=== PATIENT | female | born 1995 | race African-American/Black ===

== ENCOUNTER 2020-02-21 10:13 | Inpatient (IN) | payer OTHER ==
[~2020-02-21] VITALS: Ht 157.5 cm; Wt 79.8 kg
[2020-02-21 10:55] LABS: HCT 32.7 % (37.0-47.0); HGB 10.8 g/dl (12.5-16.0); MCH 29.1 pg (25.0-31.0); MCV 88.1 fL (78.0-100.0); MPV 9.7 fL (6.0-9.5); RBC 3.71 M/uL (4.20-5.40); RDW 12.8 % (11.5-14.0); WBC 10.9 K/uL (4.0-10.5)
[2020-02-21 11:09] LABS: ALBUMIN 2.5 g/dL (3.4-5.0); BILIRUBIN - TOTAL 0.3 mg/dL (0.2-1.0); BUN/CREAT RATIO (CALC) 5.3 RATIO; CREATININE 0.38 mg/dL (0.51-0.95); GLOBULIN (CALCULATION) 3.6 g/dL; POTASSIUM 3.3 mmol/L (3.5-5.1); TOTAL PROTEIN 6.1 g/dL (6.4-8.2)
[2020-02-21 14:11] LABS: BILIRUBIN NEGATIVE (NEGATIVE); BLOOD NEGATIVE Ery/uL (NEGATIVE); CLARITY CLEAR (CLEAR); COLOR YELLOW (YELLOW); GLUCOSE (U) NORMAL (NORMAL); LEUKOCYTES NEGATIVE Leu/uL (NEGATIVE); NITRITE NEGATIVE (NEGATIVE); PROTEIN NEGATIVE (NEGATIVE); UROBILINOGEN 0.2 mg/dL (0.2-1.0)
[2020-02-21 14:19] LABS: URIC ACID 3.7 mg/dL (2.6-6.2)
[2020-02-22 05:58] LABS: HCT 28.9 % (37.0-47.0); HGB 9.4 g/dl (12.5-16.0); MCH 29.2 pg (25.0-31.0); MCHC 32.5 g/dL (32.0-36.0); MCV 89.8 fL (78.0-100.0); MPV 9.7 fL (6.0-9.5); RBC 3.22 M/uL (4.20-5.40); RDW 12.9 % (11.5-14.0); WBC 12.1 K/uL (4.0-10.5)
[2020-02-23] MEDS ORDERED: OXYCODONE-ACET1 EAC1 PO (11:16)
[2020-02-23] MEDS ORDERED: COLACE100 MG PO (11:17)
[2020-02-23] MEDS ORDERED: PRENATAL FORMU1 EACH PO (11:18)
[2020-02-23] MEDS ORDERED: FEOSOL325 MG PO (11:19)
[2020-02-23] MEDS ORDERED: MOTRIN600 MG PO (11:20)
== END 2020-02-23 13:17 | disposition home or self-care (01) | DRG 786 ==
LOC: FOD 10:13 → FOB 10:14 → FOD 10:42 → FOB 10:43
PROVIDERS: ADMIT Obstetrics & Gynecology
PROC: 4A1HXCZ Monitoring of Products of Conception, Cardiac Rate, External Approach (ICD-10-PCS; 2020-02-21)
PROC: 10D00Z1 Extraction of Products of Conception, Low, Open Approach (ICD-10-PCS; principal; 2020-02-21 12:20)
DX: O75.0 Maternal distress during labor and delivery (principal); O45.93 Premature separation of placenta, unspecified, third trimester; D62 Acute posthemorrhagic anemia; O24.419 Gestational diabetes mellitus in pregnancy, unspecified control; Z3A.32 32 weeks gestation of pregnancy; Z37.0 Single live birth; O99.213 Obesity complicating pregnancy, third trimester; E66.9 Obesity, unspecified; O99.343 Other mental disorders complicating pregnancy, third trimester; F41.8 Other specified anxiety disorders; Z88.5 Allergy status to narcotic agent; O99.353 Diseases of the nervous system complicating pregnancy, third trimester; G43.909 Migraine, unspecified, not intractable, without status migrainosus; O99.891 Other specified diseases and conditions complicating pregnancy; M19.90 Unspecified osteoarthritis, unspecified site; Z98.890 Other specified postprocedural states; O90.81 Anemia of the puerperium; Z20.822 Contact with and (suspected) exposure to COVID-19
CPT/HCPCS: 36415; 80053; 81003; 83615; 84550; 86850; 86900; 86901; J0456; J0690; J1885; J2250; J2274; J2916; J3010; J3105; J7050; J7120; U0002

== ENCOUNTER 2020-10-17 10:26 | Emergency (ER) | payer OTHER ==
[~2020-10-17 10:26] MED LIST: COLACE100 MG PO; FEOSOL325 MG PO; MOTRIN600 MG PO; OXYCODONE-ACET1 EAC1 PO; PRENATAL FORMU1 EACH PO
== END 2020-10-17 11:58 | disposition home or self-care (01) ==
LOC: FER 10:26
DX: U07.1 COVID-19 (principal); F17.210 Nicotine dependence, cigarettes, uncomplicated; J45.909 Unspecified asthma, uncomplicated; Z88.5 Allergy status to narcotic agent
CPT/HCPCS: 99283; U0002

== ENCOUNTER 2021-09-30 17:17 | Emergency (ER) | payer OTHER ==
[~2021-09-30 17:17] MED LIST changes: +NEURONTIN300 MG PO
[2021-09-30 20:19] LABS: BASOPHIL 0.4 % (0-2); EOSINOPHIL 1.2 % (0-5); HCT 41.3 % (37.0-47.0); LYMPHOCYTE 44.8 % (15-48); MCH 30.1 pg (25.0-31.0); MCHC 33.9 g/dL (32.0-36.0); MCV 88.8 fL (78.0-100.0); MONOCYTE 5.7 % (0-12); MPV 9.6 fL (6.0-9.5); NEUTROPHIL 47.7 % (41-80); NRBC 0; PLT 304 K/uL (150-400); RBC 4.65 M/uL (4.20-5.40); RDW 12.6 % (11.5-14.0); WBC 8.2 K/uL (4.0-10.5)
[2021-09-30 20:48] LABS: ALBUMIN 3.9 g/dL (3.4-5.0); ALKALINE PHOSHATASE 97 U/L (46-116); ALT 30 U/L (14-59); AST 13 U/L (15-37); BILIRUBIN - TOTAL 0.5 mg/dL (0.2-1.0); BUN 6 mg/dL (7-18); BUN/CREAT RATIO (CALC) 9.4 RATIO; CHLORIDE 106 mmol/L (98-107); CO2 (BICARBONATE) 24 mmol/L (21-32); CREATININE 0.64 mg/dL (0.51-0.95); GLUCOSE 88 mg/dL (74-106); POTASSIUM 3.7 mmol/L (3.5-5.1); TOTAL PROTEIN 6.9 g/dL (6.4-8.2)
== END 2021-09-30 21:20 | disposition home or self-care (01) ==
LOC: FER 17:17
PROVIDERS: Emergency Medicine
DX: R07.89 Other chest pain (principal); R00.2 Palpitations; F17.200 Nicotine dependence, unspecified, uncomplicated; Z28.310 Unvaccinated for COVID-19; Z88.5 Allergy status to narcotic agent
CPT/HCPCS: 36415; 71045; 80053; 84443; 84484; 84703; 85025; 93005